=== PATIENT | female | born 1955 | race African-American/Black ===

== ENCOUNTER 2017-10-16 15:55 | Inpatient (IN) | payer MEDICARE ==
[~2017-10-16] VITALS: Ht 165.1 cm; Wt 71.7 kg
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
--- NOTE | ~2017-10-16 | PR ---
[place], [place] PROGRESS NOTE NAME: JULIA ROMANO UNIT #: [id number] ROOM: 311 DOCTOR: MUSA DUNBAR MD BIRTHDATE: [birth year] DOS: 10/18/2017 CHIEF COMPLAINT: "My right knee hurts, plus I feel a little spaced out." SUMMARY OF THE VISIT: The patient was interviewed in the dining area where she was sitting watching television quietly. She engaged readily in conversation. She now remembers that she does not remember the events that led to her hospital stay and is much more accepting of the fact that she was rather confused and disjointed when she was admitted. She was bright, pleasant and engaging. She did complain that in addition to all the left-sided pain that she had talked about yesterday, her right knee is also bothering her and requested that we take a look at it. Mood ibrahim, she seems better and there is less mood lability and there is no psychosis. She did report to the nurses that the one medicine at nighttime does seem to be making her a little loopy, which is most likely from the Latuda. MENTAL STATUS: She is alert and oriented. Mood does seem to be strongly trending towards euthymia. Affect is more appropriate. There is no danyel or hypomania. There are no overt auditory or visual hallucinations. No delusions, no paranoia. PLAN: I will go ahead and discontinue her Latuda. We will have the hospitalist examine her for the right knee issues. Engage in individual and cosby milieu activity, returning to the least restrictive environment when stable. MUSA DUNBAR MD CM:PNTRANS 1422 MUSA DUNBAR MD 10/19/1799 interface
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
[2017-10-16] MEDS ORDERED: NEURONTIN300 MG PO (16:56)
[2017-10-16] MEDS ORDERED: METFORMIN1000 MG PO (16:59)
[2017-10-16] MEDS ORDERED: CLONIDINE HCL0.1 M1 PO (17:00)
[2017-10-16] MEDS ORDERED: XANAX0.5 MG PO (17:00)
[2017-10-16] MEDS ORDERED: NAPROXEN500 MG PO (17:01)
[2017-10-16] MEDS ORDERED: GLUCOTROL5 MG PO (17:01)
[2017-10-16] MEDS ORDERED: LAMICTAL200 MG PO (17:02)
[2017-10-16] MEDS ORDERED: ZOLOFT100 MG PO (17:02)
[2017-10-16] MEDS ORDERED: LOTREL 10-20 M1 EACH PO (17:05)
[2017-10-16] MEDS ORDERED: GLIMEPIRIDE2 MG PO (17:44)
[2017-10-16 20:30] VITALS: BP 156/67
[2017-10-17 00:53] VITALS: BP 156/67
[2017-10-17 07:57] VITALS: BP 149/78
[2017-10-17 09:04] LABS: BASO % 0.6 % (0.0-1.0); EOS # 0.1 10*3/uL (0.0-0.4); EOS % 1.9 % (1.0-4.0); HEMATOCRIT 35.3 % (37.0-47.0); HEMOGLOBIN 11.5 g/dl (12.0-16.0); LYMPH # 1.5 10*3/uL (1.3-4.4); LYMPH % 31.7 % (27.0-41.0); MEAN CELL VOLUME 79.5 fl (81.0-99.0); MEAN CORPUSCULAR HGB 25.9 pg (27.0-31.0); MEAN CORPUSCULAR HGB CONC 32.6 g/dl (33.0-37.0); MEAN PLATELET VOLUME 10.7 fl (9.6-12.3); MONO # 0.3 10*3/uL (0.1-1.0); MONO % 6.8 % (3.0-9.0); NEUT # 2.8 10*3/uL (2.3-7.9); NEUT % 58.6 % (47.0-73.0); PLATELET COUNT AUTOMATED 117 10*3/uL (130-400); RED BLOOD COUNT 4.44 10*6/uL (4.10-5.10); RED CELL DISTRI WIDTH 14.7 % (0-14.5); WHITE BLOOD COUNT 4.8 10*3/uL (4.8-10.8)
[2017-10-17 09:21] LABS: ALBUMIN 3.2 gm/dl (3.1-4.5); ALKALINE PHOSPHATASE 65 U/L (45-117); BUN 11 mg/dl (7-24); CHLORIDE 107 mmol/L (98-107); CHOLESTEROL 161 mg/dL (<200); CREATININE 1.01 mg/dL (0.55-1.02); POTASSIUM 3.8 mmol/L (3.5-5.1); SGOT/AST 81 IU/L (3-35); SGPT/ALT 60 U/L (12-78); SODIUM 140 mmol/L (136-145); TRIGLYCERIDES 79 mg/dl (<150); VLDL CHOLESTEROL 16 mg/dL (6-40)
[2017-10-17 09:27] LABS: HDL CHOLESTEROL 84 mg/dl (40-60); LDL CHOLESTEROL 61 mg/dL (9-159); THYROID STIM HORMONE (HS) 0.391 uIU/ml (0.358-4.75); TOTAL PROTEIN 7.6 gm/dL (6.4-8.2)
[2017-10-17 20:05] VITALS: BP 131/65
[2017-10-18 07:59] VITALS: BP 136/82
[2017-10-18 20:00] VITALS: BP 152/82
[2017-10-19 07:37] LABS: BASO % 0.4 % (0.0-1.0); EOS # 0.1 10*3/uL (0.0-0.4); EOS % 2.4 % (1.0-4.0); HEMATOCRIT 31.3 % (37.0-47.0); HEMOGLOBIN 10.1 g/dl (12.0-16.0); LYMPH # 2.1 10*3/uL (1.3-4.4); MEAN CELL VOLUME 79.4 fl (81.0-99.0); MEAN CORPUSCULAR HGB 25.6 pg (27.0-31.0); MEAN CORPUSCULAR HGB CONC 32.3 g/dl (33.0-37.0); MONO # 0.5 10*3/uL (0.1-1.0); MONO % 9.9 % (3.0-9.0); NEUT # 1.9 10*3/uL (2.3-7.9); NEUT % 41.7 % (47.0-73.0); PLATELET COUNT AUTOMATED 102 10*3/uL (130-400); RED BLOOD COUNT 3.94 10*6/uL (4.10-5.10); RED CELL DISTRI WIDTH 14.7 % (0-14.5); WHITE BLOOD COUNT 4.6 10*3/uL (4.8-10.8)
[2017-10-19 08:03] VITALS: BP 132/66
[2017-10-19 08:07] LABS: BUN 12 mg/dl (7-24); CHLORIDE 110 mmol/L (98-107); POTASSIUM 3.8 mmol/L (3.5-5.1); SODIUM 143 mmol/L (136-145)
[2017-10-19 19:51] VITALS: BP 150/72
[2017-10-20 08:40] VITALS: BP 153/76
[2017-10-20 20:11] VITALS: BP 140/82
[2017-10-21 07:44] VITALS: BP 159/82
[2017-10-21] MEDS ORDERED: MIRTAZAPINE15 M2 PO (09:39)
[2017-10-21 19:05] LABS: NEURONTIN (GABAPENTIN) 6.4 ug/mL (4.0-16.0)
[2017-10-21 20:00] VITALS: BP 155/71
[2017-10-22 07:56] VITALS: BP 132/65
== END 2017-10-22 16:00 | disposition home or self-care (01) | DRG 885 ==
LOC: 3N 15:55
PROVIDERS: Internal Medicine; Psychiatry & Neurology Psychiatry
DX: F33.9 Major depressive disorder, recurrent, unspecified (principal); E11.65 Type 2 diabetes mellitus with hyperglycemia; F23 Brief psychotic disorder; B18.2 Chronic viral hepatitis C; W03.XXXA Other fall on same level due to collision with another person, initial encounter; F13.10 Sedative, hypnotic or anxiolytic abuse, uncomplicated; F17.210 Nicotine dependence, cigarettes, uncomplicated; F19.10 Other psychoactive substance abuse, uncomplicated; K21.9 Gastro-esophageal reflux disease without esophagitis; G89.29 Other chronic pain; M54.9 Dorsalgia, unspecified; F14.10 Cocaine abuse, uncomplicated; I10 Essential (primary) hypertension; G40.909 Epilepsy, unspecified, not intractable, without status epilepticus; X58.XXXA Exposure to other specified factors, initial encounter; S00.83XA Contusion of other part of head, initial encounter; Y93.89 Activity, other specified; Y92.89 Other specified places as the place of occurrence of the external cause; Z86.73 Personal history of transient ischemic attack (TIA), and cerebral infarction without residual deficits; Z83.3 Family history of diabetes mellitus; Z82.49 Family history of ischemic heart disease and other diseases of the circulatory system; Z79.84 Long term (current) use of oral hypoglycemic drugs; Z79.899 Other long term (current) drug therapy; Z71.6 Tobacco abuse counseling; Y99.8 Other external cause status